=== PATIENT | female | born 1975 | race Caucasian/White ===

== ENCOUNTER 2021-08-07 05:51 | Day surgery (SDC) | payer OTHER ==
[2021-08-07] MEDS ORDERED: Dextrose 5%-Lactated Ringers 1,000 ML IV SCH (06:30)
[2021-08-07] MEDS ORDERED: fentaNYL 100 MCG/2 ML SDV ONE (07:03)
[2021-08-07] MEDS ORDERED: Midazolam 1 MG/ML 2 ML SDV ONE (07:03)
[2021-08-07] MEDS ORDERED: Propofol 200 MG/20 ML SDV ONE (07:03)
[2021-08-07] MEDS ORDERED: Glycopyrrolate 0.2 MG/ML 2 ML SDV IVPUSH ONE (07:15)
--- NOTE | 2021-08-20 20:42 | OR ---
DATE OF PROCEDURE: 08/07/2021 SURGEON: Manish Xavier MD PREOPERATIVE DIAGNOSIS: History of gastroesophageal reflux disease. POSTOPERATIVE DIAGNOSES: History of gastroesophageal reflux disease with: 1. Wide open esophagogastric junction with active gastroesophageal reflux disease associated with 3 cm hiatal hernia. 2. Retained bile and solids in stomach consistent with gastroparesis. 3. Mild antral gastritis. OPERATIVE PROCEDURES: Esophagogastroduodenoscopy with: 1. Biopsy of esophagogastric junction for histologic evaluation. 2. Biopsies of antrum for CLOtest. ANESTHESIA: IV sedation. INDICATION FOR PROCEDURE: This is a 46-year-old female presenting for followup of her gastroesophageal reflux disease. This has become increasingly refractory to start some ongoing medical management. The plan is to proceed with upper GI endoscopy with biopsies as indicated. Potential risks of the procedure including bleeding and perforation were discussed, and the patient wishes to proceed. DETAILS OF PROCEDURE: The patient was taken to the operating room, placed in a left lateral decubitus position. IV sedation was administered after which the upper GI endoscope was passed orally through the length of the esophagus and the stomach with retroflexion view of the fundus, and thereafter through the pyloric channel into the proximal duodenum. Findings included some redness in the hypopharynx and larynx consistent with some probable ongoing reflux. The upper esophageal sphincter and esophageal body were unremarkable. At the EG junction was roughly a 3 cm hiatal hernia. The gastroesophageal junction itself was wide open with there being a wide opening into the stomach as one peered with the gastroscope in the distal esophagus. This was associated with quite active gastroesophageal reflux disease with the mucosa being edematous, reddened, and 2 focal small ulcers were seen. In the stomach, one additional finding was large amount of retained bile as well as some solid food even though the patient had been n.p.o. for over 12 hours. This was associated with some redness in the antrum. Pyloric channel was visualized. Portions of the duodenum were unremarkable. At this point, biopsies obtained from the antrum and sent for CLOtest for H pylori and multiple biopsies were obtained from esophagogastric junction and sent for histologic evaluation. No bleeding was noted and the patient tolerated the procedure well. The patient will be taken to the recovery room in satisfactory condition. The patient contemplating upcoming bariatric surgery. Most recent weight was 217.6 with a height of 5 feet 3 inches given her BMI of 38.7. This alone I think would be a contraindication to a Kyleigh fundoplication as the natural history of this is certainly going to be likely continue to gain weight over time and the fundoplication even with BMI in upper 30s work probably poorly, and we have faced it. At that point, we can do something like a gastric bypass in a reoperative setting making the complications such as stricture and leaks somewhat higher. Additionally, the element of probable impaired gastric emptying is seen by the retained bile and food within the stomach. Would be a strict contraindication to doing Kyleigh fundoplication as that would likely result in a significant gas bloat syndrome. Given this, the patient would be clearly best treated with a gastric bypass for both treatment of reflux disease as well as her morbid obesity. Manish Xavier MD /[id number]
== END 2021-08-07 08:15 | disposition home or self-care (01) ==
LOC: JP.SDS 05:51
PROVIDERS: ATTEND Surgery
DX: K21.9 Gastro-esophageal reflux disease without esophagitis (principal); K44.9 Diaphragmatic hernia without obstruction or gangrene; K29.60 Other gastritis without bleeding; Z88.8 Allergy status to other drugs, medicaments and biological substances
CPT/HCPCS: 43239; 87081; 88305; J2250; J2704; J3010; J3490; J7121

== ENCOUNTER 2022-09-03 18:17 | Emergency (ER) | payer OTHER ==
[2022-09-03] MEDS ORDERED: HYDROmorphone 1 MG/ML Syringe IVPUSH ONE ×2 (20:11→22:28)
[2022-09-03] MEDS ORDERED: Ondansetron 4 MG/2 ML SDV IVPUSH ONE (20:12)
[2022-09-03] MEDS ORDERED: Sodium Chloride 0.9% 1,000 ML IV SCH (20:15)
[2022-09-03 20:45] LABS: ESTIMATED GFR 110 mL/min (>60)
[2022-09-03 22:12] LABS: CORONAVIRUS COVID-19 NAA NEGATIVE (NEGATIVE)
== END 2022-09-03 23:12 | disposition home or self-care (01) ==
LOC: JP.ED 18:17
DX: M54.50 Low back pain, unspecified (principal); B34.9 Viral infection, unspecified; K21.9 Gastro-esophageal reflux disease without esophagitis; Z88.8 Allergy status to other drugs, medicaments and biological substances; Z79.899 Other long term (current) drug therapy; Z20.822 Contact with and (suspected) exposure to COVID-19
CPT/HCPCS: 0241U; 36415; 74176; 80053; 81001; 82150; 83690; 83735; 84100; 84443; 85025; 96361; 96374; 96375; 96376; 99283; 99284-25; J1170; J2405; J7030